=== PATIENT | female | born 1970 | race Caucasian/White ===

== ENCOUNTER 2023-08-06 02:00 | Emergency (ER) | payer BC, OTHER ==
[2023-08-06] MEDS: Albuterol/Ipratropium 3.0-0.5 MG/3 ML Neb Soln NEB ONE (02:47)
[2023-08-06] MEDS: methylPREDNISolone Sodium Succinate 125 MG/2 ML SDV IM ONE (02:47)
[2023-08-06] MEDS: Azithromycin 500 MG Tab PO ONE (03:23)
== END 2023-08-06 03:30 | disposition home or self-care (01) ==
LOC: FB.ED 02:00
DX: J45.901 Unspecified asthma with (acute) exacerbation (principal); Z79.899 Other long term (current) drug therapy
CPT/HCPCS: 94640; 96372; 99284; A9270-GY; J2919; J7620

== ENCOUNTER 2024-12-13 07:06 | Day surgery (SDC) | payer BC ==
[~2024-12-13 07:06] MED LIST: Sodium Chloride 0.9% 10 ML Syringe FLUSH PRN
[2024-12-13] MEDS: Lactated Ringers 1,000 ML IV SCH (07:47)
[2024-12-13] MEDS ORDERED: Propofol 200 MG/20 ML SDV IV ONE (14:53)
== END 2024-12-13 09:08 | disposition home or self-care (01) ==
LOC: FB.SDS 07:06
PROVIDERS: ATTEND Surgery
DX: Z12.11 Encounter for screening for malignant neoplasm of colon (principal); K57.30 Diverticulosis of large intestine without perforation or abscess without bleeding; Z88.8 Allergy status to other drugs, medicaments and biological substances; Z91.09 Other allergy status, other than to drugs and biological substances; Z87.891 Personal history of nicotine dependence; Z79.899 Other long term (current) drug therapy
CPT/HCPCS: 00812; A9270-GY; J2704; J7120